=== PATIENT | female | born 1980 | race Hispanic/Latino ===

== ENCOUNTER 2024-08-18 19:00 | Emergency (ER) | payer BC ==
[~2024-08-18] VITALS: Ht 175.3 cm; Wt 81.6 kg
[~2024-08-18 19:00] MED LIST: CYCLOBENZAPRINE5 MG PO; HYDROCODON-ACE1 EA11 PO; KETOROLAC TROME10 MG PO; METHOCARBAMOL750 MG PO; NAPROSYN500 MG PO; PREDNISONE20 MG PO; ULTRAM 50MG50 MG PO
[2024-08-18 20:54] LABS: INFLUENZAE A&B ANTIGEN (RAPID) NEGATIVE (NEGATIVE); RESPIRATORY SYNC. VIRUS NEGATIVE (NEGATIVE); STREPTOCOCCUS GRP A ANTIGEN NEGATIVE (NEGATIVE)
[2024-08-18 20:57] VITALS: PULSE 89; RESP 18; TEMP 98.2; O2SAT 99
[2024-08-18] MEDS ORDERED: AZITHROMYCIN250 MG PO (21:26)
[2024-08-18] MEDS ORDERED: VENTOLIN HFA18 GM INH (21:26)
[2024-08-18] MEDS ORDERED: PREDNISONE20 MG PO (21:26)
== END 2024-08-18 22:07 | disposition home or self-care (01) ==
LOC: ER 19:00
DX: R50.9 Fever, unspecified (principal); J06.9 Acute upper respiratory infection, unspecified; R05.9 Cough, unspecified; M54.9 Dorsalgia, unspecified; G89.29 Other chronic pain; Z11.52 Encounter for screening for COVID-19
CPT/HCPCS: 83518; 87070; 87400; 87420; 99282; U0002

== ENCOUNTER 2024-09-25 18:25 | Emergency (ER) | payer BC ==
[~2024-09-25] VITALS: Ht 175.3 cm; Wt 81.6 kg
[~2024-09-25 18:25] MED LIST changes: +AZITHROMYCIN250 MG PO; +VENTOLIN HFA18 GM INH
[2024-09-25 19:04] VITALS: RESP 18; TEMP 97.9
[2024-09-25] MEDS: METHYLPREDNISOLONE SOD SUCC 40 MG/ML VIAL 1ML IV ONE (19:26)
[2024-09-25] MEDS: ALBUTEROL/IPRATROPIUM 3 ML NEB NEB ONE (19:36)
[2024-09-25 19:37] VITALS: PULSE 112; RESP 20; O2SAT 98
[2024-09-25] MEDS: ONDANSETRON HCL INJ 2MG/ML 2ML 2 MG/ML VIAL IV STA (19:38)
[2024-09-25 20:23] LABS: BASOPHILS # (AUTO) 0.1 (0.0-0.1); BASOPHILS % 0.4 % (0.0-1.0); EOSINOPHILS # (AUTO) 0.3 (0.0-0.4); EOSINOPHILS % 1.8 % (0.0-6.0); HEMATOCRIT 39.7 % (34.2-44.1); HEMOGLOBIN 12.4 g/dL (12.0-16.0); LYMPHOCYTES # (AUTO) 3.2 (1.0-3.2); LYMPHOCYTES % 22.3 % (18.0-39.1); MEAN CORPUSCULAR HEMOGLOBIN 27.7 pg (28-32); MEAN CORPUSCULAR HGB CONC 31.2 g/dL (31-35); MEAN CORPUSCULAR VOLUME 88.6 fL (81-99); MONOCYTES # (AUTO) 0.8 (0.2-0.8); MONOCYTES % 5.8 % (4.4-11.3); NEUTROPHILS # (AUTO) 9.8 (2.1-6.9); NEUTROPHILS % 69.5 % (38.7-80.0); PLATELET COUNT 407 x10e3/uL (140-360); RED BLOOD COUNT 4.48 x10e6/uL (3.6-5.1); RED CELL DISTRIBUTION WIDTH 13.6 % (11.7-14.4); WHITE BLOOD COUNT 14.17 x10e3/uL (4.8-10.8)
[2024-09-25 20:39] LABS: ANION GAP 15.6 mmol/L (8-16); CALCIUM 9.4 mg/dL (8.4-10.2); CREATININE, SERUM 0.79 mg/dL (0.57-1.11); POTASSIUM 3.6 mmol/L (3.5-5.1)
[2024-09-25 20:40] LABS: CORONAVIRUS COVID-19 AG NEGATIVE (NEGATIVE); INFLUENZA A AG NEGATIVE (NEGATIVE); INFLUENZA B AG NEGATIVE (NEGATIVE)
[2024-09-25] MEDS ORDERED: VENTOLIN HFA18 GM INH (21:07)
[2024-09-25] MEDS ORDERED: AZITHROMYCIN250 MG PO (21:07)
[2024-09-25] MEDS ORDERED: MEDROL4 M2 PO (21:07)
[2024-09-25 21:20] VITALS: PULSE 89
[2024-09-25 21:28] VITALS: BP 136/83; PULSE 87; RESP 20; O2SAT 100
== END 2024-09-25 21:25 | disposition home or self-care (01) ==
LOC: ER 18:28
DX: R06.02 Shortness of breath (principal); J40 Bronchitis, not specified as acute or chronic; R05.9 Cough, unspecified; R06.2 Wheezing; M54.9 Dorsalgia, unspecified; G89.29 Other chronic pain
CPT/HCPCS: 36415; 71045; 80048; 85025; 87428; 94640; 94799; 99284; J2405; J2919

== ENCOUNTER 2024-10-14 19:25 | Emergency (ER) | payer BC ==
[~2024-10-14] VITALS: Ht 175.3 cm; Wt 81.6 kg
[~2024-10-14 19:25] MED LIST changes: +MEDROL4 M2 PO
[2024-10-14 20:03] LABS: BASOPHILS # (AUTO) 0.1 (0.0-0.1); BASOPHILS % 0.8 % (0.0-1.0); EOSINOPHILS # (AUTO) 1.3 (0.0-0.4); EOSINOPHILS % 9.8 % (0.0-6.0); HEMOGLOBIN 12.2 g/dL (12.0-16.0); LYMPHOCYTES # (AUTO) 2.7 (1.0-3.2); LYMPHOCYTES % 20.6 % (18.0-39.1); MEAN CORPUSCULAR HEMOGLOBIN 27.7 pg (28-32); MEAN CORPUSCULAR HGB CONC 31.3 g/dL (31-35); MEAN CORPUSCULAR VOLUME 88.6 fL (81-99); MONOCYTES # (AUTO) 0.8 (0.2-0.8); MONOCYTES % 6.2 % (4.4-11.3); NEUTROPHILS # (AUTO) 8.1 (2.1-6.9); NEUTROPHILS % 62.2 % (38.7-80.0); PLATELET COUNT 346 x10e3/uL (140-360); RED CELL DISTRIBUTION WIDTH 13.8 % (11.7-14.4); WHITE BLOOD COUNT 13.06 x10e3/uL (4.8-10.8)
[2024-10-14 20:19] LABS: ALBUMIN 3.8 g/dL (3.5-5.0); ANION GAP 14.2 mmol/L (8-16); BILIRUBIN,TOTAL 0.4 mg/dL (0.2-1.2); CALCIUM 9.1 mg/dL (8.4-10.2); CREATININE, SERUM 0.79 mg/dL (0.57-1.11); POTASSIUM 4.2 mmol/L (3.5-5.1); TOTAL PROTEIN 7.7 g/dL (6.5-8.1)
[2024-10-14] MEDS ORDERED: IOPAMIDOL 370 MG/ML 100 ML INFUS..BTL INJ ONE (20:21)
[2024-10-14 20:27] LABS: CORONAVIRUS COVID-19 AG NEGATIVE (NEGATIVE); INFLUENZA A AG NEGATIVE (NEGATIVE); INFLUENZA B AG NEGATIVE (NEGATIVE); STREPTOCOCCUS GRP A ANTIGEN NEGATIVE (NEGATIVE)
[2024-10-14 20:53] VITALS: PULSE 108; RESP 22; O2SAT 100
[2024-10-14] MEDS: ALBUTEROL/IPRATROPIUM 3 ML NEB NEB STA (20:59)
[2024-10-14 21:14] VITALS: PULSE 98; RESP 24
[2024-10-14] MEDS ORDERED: GUAIFENESIN400 MG PO (22:07)
[2024-10-14 22:17] VITALS: PULSE 84; RESP 17; TEMP 98.6; O2SAT 98
== END 2024-10-14 22:17 | disposition home or self-care (01) ==
LOC: ER 19:30
DX: R06.02 Shortness of breath (principal); J40 Bronchitis, not specified as acute or chronic; R05.9 Cough, unspecified; M54.9 Dorsalgia, unspecified; G89.29 Other chronic pain
CPT/HCPCS: 36415; 71260; 80053; 83518; 84702; 85025; 87070; 87428; 94640; 94799; 99284; Q9967

== ENCOUNTER 2025-04-21 15:38 | Emergency (ER) | payer BC ==
[~2025-04-21] VITALS: Ht 175.3 cm; Wt 81.6 kg
[~2025-04-21 15:38] MED LIST changes: +GUAIFENESIN400 MG PO
[2025-04-21 15:52] VITALS: TEMP 98.4
[2025-04-21 16:24] LABS: BASOPHILS # (AUTO) 0.1 (0.0-0.1); EOSINOPHILS # (AUTO) 1.1 (0.0-0.4); EOSINOPHILS % 7.8 % (0.0-6.0); HEMATOCRIT 37.9 % (34.2-44.1); HEMOGLOBIN 12.5 g/dL (12.0-16.0); LYMPHOCYTES # (AUTO) 2.6 (1.0-3.2); LYMPHOCYTES % 19.3 % (18.0-39.1); MEAN CORPUSCULAR HEMOGLOBIN 27.7 pg (28-32); MEAN CORPUSCULAR VOLUME 83.8 fL (81-99); MONOCYTES # (AUTO) 0.9 (0.2-0.8); MONOCYTES % 6.7 % (4.4-11.3); NEUTROPHILS # (AUTO) 8.8 (2.1-6.9); PLATELET COUNT 434 x10e3/uL (140-360); RED BLOOD COUNT 4.52 x10e6/uL (3.6-5.1); RED CELL DISTRIBUTION WIDTH 14.1 % (11.7-14.4); WHITE BLOOD COUNT 13.53 x10e3/uL (4.8-10.8)
[2025-04-21 16:45] LABS: ANION GAP 14.4 mmol/L (8-16); CALCIUM 8.8 mg/dL (8.4-10.2); CREATININE, SERUM 0.82 mg/dL (0.57-1.11)
[2025-04-21 16:48] LABS: INFLUENZA A AG NEGATIVE (NEGATIVE); INFLUENZA B AG NEGATIVE (NEGATIVE)
[2025-04-21 16:49] LABS: CORONAVIRUS COVID-19 AG NEGATIVE (NEGATIVE)
[2025-04-21 16:50] LABS: POTASSIUM 3.4 mmol/L (3.5-5.1)
[2025-04-21 16:54] VITALS: PULSE 95; RESP 20
[2025-04-21] MEDS: METHYLPREDNISOLONE SOD SUCC 125 MG/2ML VIAL IV ONE (17:55)
[2025-04-21 17:59] VITALS: BP 143/98; PULSE 88; RESP 18; O2SAT 95
[2025-04-21] MEDS ORDERED: ROBITUSSIN COU118 M4 PO (18:25)
[2025-04-21] MEDS ORDERED: NAPROSYN500 MG PO (18:25)
[2025-04-21] MEDS ORDERED: CETIRIZINE HCL10 MG PO (18:25)
[2025-04-21] MEDS ORDERED: DOXYCYCLINE HY100 MG PO (18:25)
== END 2025-04-21 18:30 | disposition home or self-care (01) ==
LOC: ER 16:59
DX: R05.9 Cough, unspecified (principal); J06.9 Acute upper respiratory infection, unspecified; M54.9 Dorsalgia, unspecified; G89.29 Other chronic pain; Z11.52 Encounter for screening for COVID-19
CPT/HCPCS: 36415; 71045; 80048; 83518; 85025; 87070; 87428; 99284; J0696; J2919